=== PATIENT | female | born 1965 | race Caucasian/White ===

== ENCOUNTER 2017-12-21 23:36 | Emergency (ER) | payer SELFPAY ==
[2017-12-21] MEDS ORDERED: SERTRALINE HCL100 MG PO (23:42)
[2017-12-21] MEDS ORDERED: GABAPENTIN400 MG PO (23:43)
[2017-12-21] MEDS ORDERED: TYLENOL WITH C1 EACH PO (23:44)
[2017-12-21] MEDS ORDERED: AMLODIPINE BESYL5 MG PO (23:44)
[2017-12-21] MEDS ORDERED: LEXAPRO10 MG PO (23:44)
[2017-12-21] MEDS ORDERED: TETANUS/DIPHTHERIA TOX ADULT 0.5 ML SYR IM ONE (23:45)
[2017-12-21] MEDS ORDERED: POTASSIUM CHLO20 ME1 PO (23:45)
[2017-12-21] MEDS ORDERED: LISINOPRIL10 MG PO (23:45)
--- NOTE | 2017-12-22 00:32 | Diagnostic Imaging Report ---
Examination: CT CERVICAL SPINE WITHOUT CONTRAST HISTORY:Neck injury after fall. COMPARISON:None. TECHNIQUE: Multidetector helical axial images were obtained without contrast from the foramen magnum to T1. Coronal and sagittal reformatted images were done. Bone and soft tissue windows were evaluated. FINDINGS: Alignment:Normal alignment and lordosis. Vertebrae: Normal height and density. No acute fracture, infection or neoplasm. Disc space heights: Normal height. Caliber of spinal canal: Developmentally normal. Posterior fossa and craniocervical junction: Foramen magnum patent. No Chiari 1 malformation. Soft tissues: No abnormality. Degenerative changes: No disc bulge/ herniation or foraminal or canal stenosis. Additional findings: None. IMPRESSION: No acute abnormalities. Signed by: Dr. Daisy Coyle M.D. on 12/22/2017 12:28 AM
--- NOTE | 2017-12-22 00:32 | Diagnostic Imaging Report ---
Examination: CT BRAIN WITHOUT CONTRAST History:Fall; head injury. Comparison studies:None Technique: Axial images were obtained from the skull base to the vertex. Coronal and sagittal images reconstructed from the axial data. Intravenous contrast: None Findings: Scalp: No abnormalities. Bones: Left frontal craniectomy. No fractures, blastic or lytic lesions. Brain sulci: Mild volume loss for age. Ventricles: No hydrocephalus. Extra-axial space: No abnormalities. Parenchyma: No masses, hemorrhage, or acute or chronic cortical based vascular insults.. Sellar/suprasellar region: No abnormalities. Craniocervical junction: Patent foramen magnum. No Chiari one malformation. Incidental findings: None. Impression: 1. No acute intracranial abnormalities. 2. Mild volume loss for age. 3. Left frontal craniectomy. Signed by: Dr. Daisy Coyle M.D. on 12/22/2017 12:29 AM
[2017-12-22] MEDS ORDERED: LYRICA75 MG PO (02:29)
[2017-12-22] MEDS ORDERED: BACLOFEN10 MG PO (02:29)
[2017-12-22] MEDS ORDERED: NORCO 10-325 T1 EACH PO (02:29)
[2017-12-22] MEDS ORDERED: ULTRAM 50MG50 MG PO (02:29)
== END 2017-12-22 04:13 | disposition home or self-care (01) ==
LOC: ER 23:36
DX: S01.111A Laceration without foreign body of right eyelid and periocular area, initial encounter (principal); S80.212A Abrasion, left knee, initial encounter; S80.211A Abrasion, right knee, initial encounter; W18.12XA Fall from or off toilet with subsequent striking against object, initial encounter; Y92.002 Bathroom of unspecified non-institutional (private) residence as the place of occurrence of the external cause
CPT/HCPCS: 70450; 72125; 90471; 90714; 99284